=== PATIENT | male | born 1945 | race Caucasian/White ===

== ENCOUNTER 2019-12-06 16:26 | Emergency (ER) | payer OTHER ==
[2019-12-06 16:35] VITALS: BP 131/59; PULSE 71; TEMP 98.3; BMI 22.0
[2019-12-06] MEDS ORDERED: SODIUM CHLORIDE 1,000 ML IV ONE (16:42)
[2019-12-06] MEDS ORDERED: FAMOTIDINE 20 MG/50 ML IVPB 20 MG/50 ML MG IVPB ONE ×2 (17:11→17:12)
--- NOTE | 2019-12-06 17:19 | PDOC ---
History of Present Illness - General Chief Complaint: Diarrhea Stated Complaint: DIARRHEA S/P TAKING LINZESS Time Seen by Provider: 12/06/19 16:41 History Source: Patient Exam Limitations: No Limitations - History of Present Illness Initial Comments: 12/06/19 17:14 74-year-old male with history of IBS and BPH, h/o afib s/p ablation, presents with diarrhea. Patient ate some purchased eggplant and drank an old protein shake on Tuesday evening, on Tuesday had 2-3 episodes of nonbloody painless diarrhea that continued into Tuesday, he took a dose of Linzess thinking it would help "clear things out" and has been having several episodes of watery nonbloody diarrhea since then. Occasional 1 out of 10 lower abdominal cramp but no persistent abdominal pain, has had decreased appetite with decreased dietary intake. No fevers or chills, no lightheadedness or syncope, no cardiopulmonary complaints. Last colonoscopy was a few months ago and showed diverticulosis with 2 benign polyps, no history of bleeding or diverticulitis. No recent travel, no recent antibiotics, no known sick contacts. Patient rarely takes Linzess, normally controls his bowel movements with fiber diet. Is followed by gastroenterology at [facility]. Past History - Past Medical History Allergies/Adverse Reactions: Allergies Allergy/AdvReac Type Severity Reaction Status Date / Time Penicillins Allergy Verified 12/06/19 16:28 Home Medications: Ambulatory Orders Levothyroxine [Synthroid -] 0 mcg PO DAILY 12/06/19 Silodosin [Rapaflo] 0 mg PO DAILY 12/06/19 Sulfamethoxazole/Trimethoprim [Bactrim Single Strength -] 1 tab PO BID #14 tablet 12/06/19 Tadalafil [Cialis] 0 mg PO ASDIR 12/06/19 Cardiac Disorders: Yes (AFIB-ABLATION) COPD: No GI Disorders: Yes (IBS) Thyroid Disease: Yes - Psycho Social/Smoking Cessation Hx Smoking History: Never smoked Hx Alcohol Use: No Drug/Substance Use Hx: No Review of Systems - Review of Systems Constitutional: No: Chills, Fever, Night Sweats, Unintentional Wgt. Loss Respiratory: No: Cough, Shortness of Breath Cardiac (ROS): No: Chest Pain, Edema, Lightheadedness, Syncope ABD/GI: Yes: Diarrhea. No: Constipated, Nausea, Vomiting : Yes: Frequency (baseline from BPH), Urgency. No: Hematuria Neurological: No: Headache All Other Systems: Reviewed and Negative *Physical Exam - Vital Signs Last Vital Signs Temp Pulse Resp BP Pulse Ox 98.3 F 71 18 131/59 L 100 12/06/19 16:27 12/06/19 16:27 12/06/19 16:27 12/06/19 16:27 12/06/19 16:27 - Physical Exam 12/06/19 17:20 Vital signs are within normal limits, afebrile GENERAL: The patient is awake, alert lying in stretcher, and fully oriented, in no acute distress. HEAD: Normal with no signs of trauma. EYES: PERRL, EOMI, sclera anicteric, conjunctiva clear with no pallor. ENT: oropharynx clear without exudates. Dry mucous membranes. NECK: Normal range of motion, supple without lymphadenopathy, JVD, or masses. LUNGS: Breath sounds equal, clear to auscultation bilaterally. No wheeze/crackles. HEART: Regular with occasional premature beats, normal S1 and S2 without murmur or rub. ABDOMEN: Soft/nontender/nondistended. BS wnl to hyperactive. No guarding or rebound. No palpable masses. No hepatosplenomegaly. EXTREMITIES: Normal range of motion, no edema. 2+ distal pulses. No cords, erythema, or tenderness. NEUROLOGICAL: Cranial nerves II through XII grossly intact. Normal speech, normal gait. PSYCH: Normal mood, normal affect. SKIN: Warm, Dry, no rashes or lesions noted. Heart Score/ECG Review #1 ECG reviewed & interpreted by me at: 17:22 General ECG Interpretation: Sinus Rhythm (with APCs noted), Normal Rate (65), Normal Intervals (qtc 397), No acute ischemic changes ED Treatment Course - LABORATORY CBC & Chemistry Diagram: 12/06/19 17:14 12/06/19 17:14 Medical Decision Making - Medical Decision Making 12/06/19 17:24 74-year-old male with history of IBS presents with 3 days of painless nonbloody diarrhea. Symptoms began with diarrhea, superimposed with taking Linzess, likely further exacerbating the sxs. Onset may have been enteritis from infectious/food source, now sxs likely persistent 2/2 pharmacologic reasons. No findings to suggest focal peritoneal process such as colitis or diverticulitis, the patient does appear to be dehydrated but is hemodynamically stable and nontoxic-appearing. Check labs, urinalysis EKG shows sinus rhythm IV fluid rehydration, Pepcid for possible gastritis/dyspepsia Reassess. No indication for emergent imaging at this time. 12/06/19 18:24 labs wnl, no leukocytosis or electrolyte abnormality. UA with 1+ leuk and 5-10 wbc. Given urgency and dysuria, will send urine cx but treat for UTI. Feels markedly better after IVF and pepcid, tolerating PO. Agrees with D/C plan - diet modification for diarrhea, has f/u with Dr. Ortiz of GI at [facility]. Understands return criteria. Discharge - Discharge Information Problems reviewed: Yes Clinical Impression/Diagnosis: Diarrhea Qualifiers: Diarrhea type: unspecified type Qualified Code(s): R19.7 - Diarrhea, unspecified IBS (irritable bowel syndrome) Qualifiers: Irritable bowel syndrome type: with diarrhea Qualified Code(s): K58.0 - Irritable bowel syndrome with diarrhea UTI (urinary tract infection) Qualifiers: Urinary tract infection type: site unspecified Hematuria presence: without hematuria Qualified Code(s): N39.0 - Urinary tract infection, site not specified Condition: Stable Disposition: HOME - Additional Discharge Information Prescriptions: Sulfamethoxazole/Trimethoprim [Bactrim Single Strength -] 1 tab PO BID #14 tabl et - Follow up/Referral Referrals: Aisha Parra MD [Primary Care Provider] - Leif Vasquez MD [Staff Physician] - Bolivar Vance MD [Staff Physician] - - Patient Discharge Instructions Patient Printed Discharge Instructions: DI for Urinary Tract Infection (UTI), DI for Diarrhea and Traveler's Diarrhea -- Adult Additional Instructions: Activity as tolerated. Stay hydrated. Blood tests today showed no acute abnormalities. The diarrhea is likely due to both a gastroenteritis (? food-related versus viral) and taking the Linzess. Try a BRAT diet (bananas, rice, apples, toast) for a couple of days. If no relief, can try Imodium over the counter. Take Pepcid 20mg twice daily as an antacid. A urine test does show some subtle signs of an infection. Given your symptoms, we should treat it with an antibiotic. Take Bactrim as prescribed. Continue your medications as previously prescribed by your physician. You should follow up with your primary doctor, urologist (consider calling Dr. Vasquez or Dr. Vance), and GI specialist (Dr. Ortiz) as soon as possible regarding today's emergency department visit. Return to the emergency department for any new or concerning symptoms, particularly fevers or chills, worsening abdominal pain, worsening diarrhea or bloody diarrhea, persistent vomiting or dehydration, inability or difficulty urinating. - Post Discharge Activity
[2019-12-06 17:24] LABS: BASO % 0.4 % (0-2.0); EOS % 0.7 % (0-4.5); HEMATOCRIT 43.1 % (35.4-49); HEMOGLOBIN 14.3 GM/dl (11.7-16.9); LYMPH % 12.1 % (8-40); MCH 29.6 pg (25.7-33.7); MCHC 33.1 g/dl (32.0-35.9); MEAN CELL VOLUME 89.6 fl (80-96); MEAN PLT VOLUME 7.8 fl (7.5-11.1); MONO % 5.9 % (3.8-10.2); NEUT % 80.9 % (42.8-82.8); PLATELET COUNT 120 K/MM3 (134-434); RBC 4.81 M/mm3 (4.00-5.60); RDW 12.8 % (11.9-15.9); WHITE BLOOD COUNT 4.1 K/mm3 (4.0-10.8)
[2019-12-06 17:33] LABS: ALBUMIN 3.7 g/dl (3.4-5.0); BILIRUBIN,TOTAL 0.8 mg/dl (0.2-1); CALCIUM 8.5 mg/dl (8.5-10); MAGNESIUM 1.9 mg/dL (1.8-2.4); POTASSIUM 4.4 mmol/L (3.5-5.1); TOT PROT 5.8 g/dl (6.4-8.2)
[2019-12-06 18:03] LABS: CALCIUM OXALATE CRYSTALS MODERATE /hpf (NONE SEEN)
--- NOTE | 2019-12-07 11:01 | EKG ---
Test Reason : Blood Pressure : / mmHG Vent. Rate : 065 BPM Atrial Rate : 065 BPM P-R Int : 170 ms QRS Dur : 086 ms QT Int : 382 ms P-R-T Axes : 079 041 066 degrees QTc Int : 397 ms SINUS RHYTHM WITH PREMATURE SUPRAVENTRICULAR COMPLEXES NONSPECIFIC T WAVE ABNORMALITY ABNORMAL ECG NO PREVIOUS ECGS AVAILABLE Confirmed by MONICA MAST MD ([id number]) on 12/07/2019 11:00:40 AM Referred By: DR DEGROOT Confirmed By:MONICA MAST MD
== END 2019-12-06 18:45 | disposition home or self-care (01) ==
LOC: FER 16:26
PROC: 3E033GC Introduction of Other Therapeutic Substance into Peripheral Vein, Percutaneous Approach (ICD-10-PCS; principal; 2019-12-06)
PROC: 3E0337Z Introduction of Electrolytic and Water Balance Substance into Peripheral Vein, Percutaneous Approach (ICD-10-PCS; 2019-12-06)
DX: N39.0 Urinary tract infection, site not specified (principal); K58.0 Irritable bowel syndrome with diarrhea; R19.7 Diarrhea, unspecified; Z88.0 Allergy status to penicillin; K58.9 Irritable bowel syndrome, unspecified
CPT/HCPCS: 36415; 80053; 81003; 81015; 83735; 85025; 87086; 93005; 96361; 96365; 99284-25; J7030

== ENCOUNTER 2023-05-31 20:30 | Emergency (ER) | payer OTHER, BC ==
[2023-05-31] MEDS ORDERED: ASPIRIN 81 MG CHEWABLE TABLETS PO ONE ×2 (21:02→21:04)
[2023-05-31 21:03] VITALS: RESP 16; TEMP 98; BMI 21.2
[2023-05-31] MEDS ORDERED: ASPIRIN 81 MG CHEWABLE TABLETS ONE (21:21)
[2023-05-31 21:24] LABS: HEMATOCRIT 38.4 % (35.4-49); HEMOGLOBIN 13.1 G/dL (11.7-16.9); MCH 30.2 pg (25.7-33.7); MEAN CELL VOLUME 88.8 fl (80-96); MEAN PLT VOLUME 8.6 fl (7.5-11.1); PLATELET COUNT 119.2 10^3/uL (134-434); RBC 4.32 10^6/uL (4.00-5.60); RDW 14.1 % (11.9-15.9); WHITE BLOOD COUNT 7.2 10^3/uL (4.0-10.8)
[2023-05-31 21:33] LABS: ALBUMIN 4.1 g/dl (3.4-5.0); BLOOD UREA NITROGEN 15.5 mg/dl (7-18); POTASSIUM 3.8 mmol/L (3.5-5.1); SGOT/AST 19.7 U/L (15-37); SGPT/ALT 13.4 U/L (7-52); TOT PROT 5.7 g/dl (6.4-8.2)
[2023-05-31 23:34] VITALS: BP 133/76; PULSE 56
[2023-05-31 23:45] LABS: BILIRUBIN,TOTAL 0.3 mg/dL (0.2-1)
== END 2023-05-31 23:40 | disposition home or self-care (01) ==
LOC: FER 20:30
DX: R07.89 Other chest pain (principal)
CPT/HCPCS: 36415; 71045-TC-FY; 80053; 82550; 84484; 85027; 93005; 99285-25

== ENCOUNTER 2023-12-09 10:50 | Inpatient (IN) | payer OTHER, BC ==
[2023-12-09] MEDS ORDERED: ACETAMINOPHEN INJECTION 100 ML IVPB ONE (11:44)
[2023-12-09] MEDS ORDERED: ONDANSETRON 4 MG/2 ML VIAL ONE (11:44)
[2023-12-09] MEDS: ONDANSETRON 4 MG/2 ML VIAL IVPB ONE (11:45)
[2023-12-09] MEDS: SODIUM CHLORIDE 1,000 ML IV ONE ×2 (11:45→13:20)
[2023-12-09] MEDS: ACETAMINOPHEN 1000 MG/100 ML BAG IVPB ONE (11:50)
[2023-12-09 12:04] LABS: HEMATOCRIT 36.6 % (35.4-49); HEMOGLOBIN 12.7 G/dL (11.7-16.9); MCH 30.2 pg (25.7-33.7); MCHC 34.8 g/dl (32.0-35.9); MEAN CELL VOLUME 86.9 fl (80-96); MEAN PLT VOLUME 8.2 fl (7.5-11.1); PLATELET COUNT 115.2 10^3/uL (134-434); RBC 4.21 10^6/uL (4.00-5.60); RDW 14.1 % (11.9-15.9); WHITE BLOOD COUNT 9.3 10^3/uL (4.0-10.8)
[2023-12-09 12:18] LABS: ALBUMIN 4.3 g/dl (3.4-5.0); BILIRUBIN,TOTAL 0.7 mg/dl (0.2-1); CALCIUM 9.2 mg/dl (8.5-10.1); CREATININE 6.2 mg/dl (0.6-1.3); POTASSIUM 4.4 mmol/L (3.5-5.1); TOT PROT 6.3 g/dl (6.4-8.2)
[2023-12-09 12:42] LABS: PLATELET ESTIMATE SLT DECREASE
[2023-12-09] MEDS ORDERED: LIDOCAINE HCL 2% JELLY 10 ML CARTRIDGE ONE (13:59)
[2023-12-09] MEDS: LIDOCAINE HCL 2% JELLY 10 ML CARTRIDGE UR ONE (14:20)
[2023-12-09] MEDS: DEXTROSE 5%-0.45% SALINE 1,000 ML IV SCH (15:58)
[2023-12-09 18:41] LABS: CALCIUM 8.5 mg/dl (8.5-10.1); CREATININE 4.3 mg/dl (0.6-1.3); POTASSIUM 3.7 mmol/L (3.5-5.1)
[2023-12-10 00:05] VITALS: BMI 21.0
[2023-12-10] MEDS: LEVOTHYROXINE NA 25 MCG TABLET (FP) PO SCH (06:14)
[2023-12-10 08:03] LABS: HEMATOCRIT 29.7 % (35.4-49); HEMOGLOBIN 10.7 GM/dL (11.7-16.9); MCH 30.4 pg (25.7-33.7); MEAN CELL VOLUME 84.5 fl (80-96); PLATELET COUNT 118 10^3/uL (134-434); RBC 3.51 M/mm3 (4.00-5.60)
[2023-12-10 08:43] LABS: ALBUMIN 2.8 g/dl (3.4-5.0); BILIRUBIN,TOTAL 0.6 mg/dL (0.2-1); BLOOD UREA NITROGEN 27.5 mg/dL (7-18); CALCIUM 8.2 mg/dL (8.5-10.1); MAGNESIUM 1.8 mg/dL (1.8-2.4); PHOSPHOROUS 2.2 mg/dL (2.5-4.9); POTASSIUM 3.4 mmol/L (3.5-5.1); TOT PROT 5.3 g/dl (6.4-8.2)
[2023-12-10] MEDS ORDERED: CEFTRIAXONE 1 GM in DEXTROSE 5%-WATER - 50 ML IVPB SCH (11:00)
[2023-12-10] MEDS: TAMSULOSIN HCL 0.4 MG CAP PO SCH (11:06)
[2023-12-10] MEDS: POTASSIUM CHLORIDE ORAL LIQUID 20 MEQ/15 ML PO ONE (14:16)
[2023-12-10] MEDS: NAPH,MB-DB/K PH,MBDB POWDER PACKET PO SCH (14:17)
[2023-12-10] MEDS: SODIUM CHLORIDE 0.45% 1,000 ML IV SCH (14:17)
[2023-12-10] MEDS: DOCUSATE SODIUM 100 MG CAPSULE (FP) PO SCH (22:01)
[2023-12-10] MEDS: POLYETHYLENE GLYCOL (HEALTHYLAX) 3350 17 GM PACKET PO SCH (22:01)
[2023-12-11] MEDS: LEVOTHYROXINE NA 25 MCG TABLET (FP) PO SCH (06:27)
[2023-12-11] MEDS: TAMSULOSIN HCL 0.4 MG CAP PO SCH (09:04)
[2023-12-11 09:44] LABS: BASO % 0.3 % (0-2.0); EOS % 1.4 % (0-4.5); HEMATOCRIT 30.7 % (35.4-49); HEMOGLOBIN 10.7 GM/dL (11.7-16.9); MCH 29.5 pg (25.7-33.7); MCHC 34.7 g/dl (32.0-35.9); MEAN CELL VOLUME 84.8 fl (80-96); MEAN PLT VOLUME 8.2 fl (7.5-11.1); MONO % 7.1 % (3.8-10.2); NEUT % 74.2 % (42.8-82.8); PLATELET COUNT 127 10^3/uL (134-434); RBC 3.62 M/mm3 (4.00-5.60); WHITE BLOOD COUNT 6.3 K/mm3 (4.0-10.0)
[2023-12-11 10:19] LABS: POTASSIUM 3.4 mmol/L (3.5-5.1)
[2023-12-11 10:22] LABS: CALCIUM 7.6 mg/dL (8.5-10.1)
[2023-12-11 10:23] LABS: ALBUMIN 2.7 g/dl (3.4-5.0); BLOOD UREA NITROGEN 20.1 mg/dL (7-18); MAGNESIUM 1.4 mg/dL (1.8-2.4)
[2023-12-11 10:26] LABS: CREATININE 1.1 mg/dL (0.55-1.3); PHOSPHOROUS 1.8 mg/dL (2.5-4.9)
[2023-12-11 10:27] LABS: TOT PROT 5.1 g/dl (6.4-8.2)
[2023-12-11 10:28] LABS: BILIRUBIN,TOTAL 0.6 mg/dL (0.2-1)
[2023-12-11] MEDS ORDERED: hydrALAZINE HCL 10 MG TABLET PO PRN (12:37)
[2023-12-11] MEDS: MAGNESIUM 1GM/D5W - 1 GM/100 ML IVPB IVPB ONE (13:03)
[2023-12-11] MEDS: NAPH,MB-DB/K PH,MBDB POWDER PACKET PO ONE (13:04)
[2023-12-11] MEDS: POTASSIUM CHLORIDE TABS 20 MEQ TABLET.ER (FP) PO ONE (13:04)
[2023-12-11] MEDS: POTASSIUM CHLORIDE ORAL LIQUID 20 MEQ/15 ML PO ONE (15:11)
[2023-12-11] MEDS: MAGNESIUM SULF 50% (8.12 MEQ/2 ML-1 GM VIAL) IVPB ONE (15:16)
[2023-12-11] MEDS: MAGNESIUM OXIDE 400 MG TABLET (FP) PO ONE (15:49)
[2023-12-12 08:33] LABS: BASO % 0.5 % (0-2.0); EOS % 2.3 % (0-4.5); HEMATOCRIT 30.8 % (35.4-49); HEMOGLOBIN 10.8 GM/dL (11.7-16.9); LYMPH % 16.9 % (8-40); MCH 29.8 pg (25.7-33.7); MCHC 35.2 g/dl (32.0-35.9); MEAN CELL VOLUME 84.7 fl (80-96); MEAN PLT VOLUME 7.9 fl (7.5-11.1); MONO % 6.7 % (3.8-10.2); NEUT % 73.6 % (42.8-82.8); PLATELET COUNT 142 10^3/uL (134-434); RBC 3.63 M/mm3 (4.00-5.60); RDW 12.8 % (11.9-15.9); RETICULOCYTES 0.57 % (0.5-1.5)
[2023-12-12 08:48] LABS: POTASSIUM 3.7 mmol/L (3.5-5.1)
[2023-12-12 08:53] LABS: CALCIUM 8.1 mg/dL (8.5-10.1)
[2023-12-12 08:54] LABS: ALBUMIN 2.8 g/dl (3.4-5.0); BLOOD UREA NITROGEN 17.3 mg/dL (7-18); MAGNESIUM 1.8 mg/dL (1.8-2.4)
[2023-12-12 08:57] LABS: PHOSPHOROUS 1.9 mg/dL (2.5-4.9)
[2023-12-12 08:58] LABS: BILIRUBIN,TOTAL 0.7 mg/dL (0.2-1); TOT PROT 5.4 g/dl (6.4-8.2)
[2023-12-12] MEDS: NAPH,MB-DB/K PH,MBDB POWDER PACKET PO ONE ×2 (14:24→15:27)
[2023-12-12 17:15] VITALS: BP 142/72; PULSE 63; RESP 18; TEMP 98.2
== END 2023-12-12 18:14 | disposition home or self-care (01) | DRG 683 ==
LOC: FER 10:50 → UNDOADMIN 14:48 → FM/S 14:48 → J4W 20:44 → J6S 12-10 15:33
PROVIDERS: ADMIT Internal Medicine; ATTEND Internal Medicine
DX: N17.9 Acute kidney failure, unspecified (principal); N13.4 Hydroureter; N39.0 Urinary tract infection, site not specified; N13.30 Unspecified hydronephrosis; E03.9 Hypothyroidism, unspecified; E87.6 Hypokalemia; E83.42 Hypomagnesemia; E83.39 Other disorders of phosphorus metabolism; N40.1 Benign prostatic hyperplasia with lower urinary tract symptoms; R31.0 Gross hematuria; D69.6 Thrombocytopenia, unspecified; E86.0 Dehydration; N13.9 Obstructive and reflux uropathy, unspecified; R35.0 Frequency of micturition; K59.00 Constipation, unspecified
CPT/HCPCS: 36415; 71045-TC-FY; 74176-TC; 76775-TC; 80048; 80053; 81003; 83690; 83735; 84100; 84484; 85025; 85027; 85045; 87086; 93005; 99285-25; J0131